=== PATIENT | female | born 1970 | race Caucasian/White ===

== ENCOUNTER 2018-07-30 13:11 | Day surgery (SDC) | payer OTHER ==
[2018-08-13 14:09] LABS: ADD MAN DIFF? NO
[2018-08-13 14:15] LABS: WHITE BLOOD COUNT 6.1 10^3/ul (4.8-10.8)
[2018-08-13 14:15] LABS: ABNORMAL IP MESSAGE 1; BASOPHILS % 0.7 % (0.0-2.0); EOSINOPHILS # 0.4 10^3/ul (0.0-0.5); EOSINOPHILS % 5.8 % (0.0-7.0); HEMATOCRIT 29.2 % (37.0-47.0); LYMPHOCYTES # 1.7 10^3/ul (0.8-2.9); LYMPHOCYTES % 27.6 % (15.0-51.0); MEAN CORPUSCULAR HEMOGLOBIN 18.6 pg (29.0-33.0); MEAN CORPUSCULAR HGB CONC 28.1 g/dl (32.0-37.0); MEAN CORPUSCULAR VOLUME 66.1 fl (82.0-101.0); MONOCYTE # 0.4 10^3/ul (0.3-0.9); MONOCYTES % 7.1 % (0.0-11.0); NEUTROPHIL # 3.6 10^3/ul (1.6-7.5); NEUTROPHILS % 58.6 % (39.0-77.0); PLATELET COUNT 167 10^3/UL (140-415); RED BLOOD COUNT 4.42 10^6/ul (4.20-5.40)
[2018-08-13 14:23] LABS: POTASSIUM 3.7 mmol/L (3.5-5.1)
[2018-08-13 14:31] LABS: INR 0.91; PROTIME 12.3 Sec (11.9-14.9)
[2018-08-13 14:32] LABS: PARTIAL THROMBOPLASTIN TIME 25.3 Sec (23.0-35.0)
[2018-08-13 14:53] LABS: HOLD TRANSMISSIONS 1; POSITIVE DIFF @See below
[2018-08-13 14:57] LABS: HEMOGLOBIN 8.2 g/dl (12.0-16.0)
[2018-08-13] MEDS ORDERED: LIDOCAINE 2% (SDV) 5 ML INJ (14:58)
[2018-08-13] MEDS ORDERED: ROPIVACAINE 0.5 % 30 ML VIAL (14:58)
[2018-08-13] MEDS ORDERED: SUCCINYLCHOLINE CHLORIDE 100 MG/5 ML SYG IV (14:58)
[2018-08-13] MEDS ORDERED: PROPOFOL 20 ML (14:58)
[2018-08-13] MEDS ORDERED: ROCURONIUM 50 MG INJ (14:58)
[2018-08-13] MEDS ORDERED: MIDAZOLAM 1 MG/ML 2 ML INJ (15:01)
[2018-08-13] MEDS: EPINEPHrine 1 MG/ML 30 ML INJ IRR (15:57)
[2018-08-13] MEDS: BUPIVACAINE 0.25%/EPI (SDV) 30 ML INJ (15:57)
[2018-08-13] MEDS ORDERED: MIDAZOLAM 1 MG/ML 2 ML INJ IV (16:30)
[2018-08-13] MEDS ORDERED: METOCLOPRAMIDE 10 MG INJ IV (16:30)
[2018-08-13] MEDS ORDERED: OXYCODONE/ACETAMINOPHEN (5/325) TAB PO (16:30)
[2018-08-13] MEDS ORDERED: FENTAnyl 50 MCG/ML VIAL IV ×3 (16:30)
[2018-08-13] MEDS ORDERED: FENTAnyl 50 MCG/ML VIAL (16:31)
[2018-08-13] MEDS ORDERED: LABETALOL HCL 20MG INJ (16:43)
[2018-08-13] MEDS ORDERED: METOCLOPRAMIDE 10 MG INJ (16:43)
[2018-08-13] MEDS ORDERED: ONDANSETRON 4 MG INJ (16:43)
[2018-08-13] MEDS ORDERED: NEOSTIGMINE 3 MG/3 ML SYRINGE (16:46)
[2018-08-13] MEDS ORDERED: GLYCOPYRROLATE 0.4 MG INJ (16:46)
[2018-08-13] MEDS ORDERED: CLINDAMYCIN 900 MG/D5W (PMX) 50 ML IVPB (16:46)
[2018-08-13] MEDS: DIPHENHYDRAMINE 50 MG INJ IV (17:25)
[2018-08-13] MEDS: MEPERIDINE 25 MG INJ IV (17:33)
[2018-08-13] MEDS: ONDANSETRON 4 MG INJ IV (18:22)
[2018-08-13] MEDS: OXYCODONE/ACETAMINOPHEN (5/325) TAB PO (18:23)
[2018-08-13] MEDS ORDERED: ALBUTEROL 0.083% (NEB) 2.5 MG/3 ML AMP (18:39)
[2018-08-13] MEDS: ALBUTEROL 0.083% (NEB) 2.5 MG/3 ML AMP HHN (18:46)
== END 2018-08-13 19:40 | disposition home or self-care (01) ==
LOC: SDS 13:11
DX: M75.41 Impingement syndrome of right shoulder (principal); M75.51 Bursitis of right shoulder; M75.101 Unspecified rotator cuff tear or rupture of right shoulder, not specified as traumatic; E66.9 Obesity, unspecified; J45.909 Unspecified asthma, uncomplicated; R94.31 Abnormal electrocardiogram [ECG] [EKG]
CPT/HCPCS: 29826; 71045; 84132; 84703; 85025; 85610; 85730; 93005; 94664